=== PATIENT | male | born 1940 | race Caucasian/White ===

== ENCOUNTER 2019-07-07 | Emergency (ER) | payer MEDICARE ==
[~2019-07-07] MED LIST: ACETAMIN500 M1 PO; ASPIRIN ADULT L81 MG PO; FISH OIL PO; FLEXERIL PO; LISINOP/HCTZ1 TAB PO; MULTIVITAMI1 PO; NAPROSYN500 MG PO; ROBAXIN 500 MG PO; TRAZODONE50 MG PO; ULTRAM50 MG PO; VITAMI16 PO; VITAMIN B CO PO
[2019-07-07 17:31] LABS: IMMATURE GRANULOCYTES 0.3 % (0.0-5.0); MEAN CELL VOLUME 90.7 fL CALC (80.0-100.0); MEAN CORPUSCULAR HGB 28.9 pG CALC (26.0-32.0); MEAN CORPUSCULAR HGB CONC 31.9 g/L CALC (32.0-36.0); NEUT# 9.2 thou/uL (1.82-7.42); RED BLOOD COUNT 5.26 mill/uL (4.70-6.10); RED CELL DISTRI WIDTH 12.8 % (11.5-15.5)
[2019-07-07 17:32] LABS: HEMATOCRIT 47.7 % (39.0-50.0); HEMOGLOBIN 15.2 g/dl (14.0-18.0)
[2019-07-07 17:45] LABS: ALBUMIN 4.7 g/dL (3.2-5.0); ALKALINE PHOSPHATASE 86 u/l (38-126); ANION GAP 13 (6-22 (CALC)); BILIRUBIN, TOTAL 0.7 mg/dL (0.0-1.4); BUN 17 mg/dL (8-23); BUN/CREATININE RATIO 24 (12-20 (CALC)); CARBON DIOXIDE 30 mmol/l (22-30); CHLORIDE 98 mmol/l (95-108); CREATININE 0.7 mg/dL (0.7-1.3); GFR > 60 ML/MIN (>=60 (CALC)); GFR FOR AFR.AMER. > 60 ML/MIN (>=60 (CALC)); SGOT/AST 25 u/l (19-48); SODIUM 137 mmol/l (137-146); TOTAL PROTEIN 8.5 g/dL (6.3-8.2)
[2019-07-07] MEDS ORDERED: MECLIZINE25 MG PO (18:15)
== END 2019-07-07 18:36 | disposition home or self-care (01) ==
PROVIDERS: Family Medicine
DX: R42 Dizziness and giddiness (principal); R94.31 Abnormal electrocardiogram [ECG] [EKG]

== ENCOUNTER 2021-08-31 17:15 | Emergency (ER) | payer MEDICARE ==
[~2021-08-31] VITALS: Ht 182.9 cm; Wt 85.0 kg
[~2021-08-31 17:15] MED LIST changes: +MECLIZINE25 MG PO
[2021-08-31 17:40] LABS: HEMATOCRIT 48.8 % (39.0-50.0); HEMOGLOBIN 15.6 g/dl (14.0-18.0); IMMATURE GRANULOCYTES 0.1 % (0.0-5.0); MEAN CELL VOLUME 90.9 fL CALC (80.0-100.0); MEAN CORPUSCULAR HGB 29.1 pG CALC (26.0-32.0); NEUT# 4.17 thou/uL (1.82-7.42); RED BLOOD COUNT 5.37 mill/uL (4.70-6.10); RED CELL DISTRI WIDTH 12.5 % (11.5-15.5)
[2021-08-31 17:56] LABS: ALBUMIN 4.6 g/dL (3.2-5.0); ALKALINE PHOSPHATASE 97 u/l (38-126); AMYLASE 101 u/l (30-110); ANION GAP 12 (6-22 (CALC)); BILIRUBIN, TOTAL 0.9 mg/dL (0.0-1.4); BUN 16 mg/dL (8-23); BUN/CREATININE RATIO 14 (12-20 (CALC)); CARBON DIOXIDE 33 mmol/l (22-30); CHLORIDE 97 mmol/l (95-108); CREATININE 1.1 mg/dL (0.7-1.3); GFR > 60 ML/MIN (>=60 (CALC)); GFR FOR AFR.AMER. > 60 ML/MIN (>=60 (CALC)); LIPASE 42 u/l (23-300); POTASSIUM 3.8 mmol/l (3.5-5.1); SGOT/AST 29 u/l (19-48); SODIUM 139 mmol/l (137-146); TOTAL PROTEIN 8.4 g/dL (6.3-8.2)
== END 2021-08-31 21:50 | disposition short-term general hospital (02) ==
LOC: ED 17:15
DX: T18.128A Food in esophagus causing other injury, initial encounter (principal); K80.20 Calculus of gallbladder without cholecystitis without obstruction; X58.XXXA Exposure to other specified factors, initial encounter
CPT/HCPCS: J1610; Q9967